=== PATIENT | male | born 1940 | race Two or more races ===

== ENCOUNTER → 2017-06-29 | Outpatient (REF) | payer BC, MEDICARE | LOC: M SMT 13:08 | PROVIDERS: ATTEND Nurse Practitioner Women's Health | DX: N40.1 Benign prostatic hyperplasia with lower urinary tract symptoms (principal) ==

== ENCOUNTER 2017-08-14 03:19 | Inpatient (IN) | payer MEDICARE ==
[2017-08-14] MEDS ORDERED: BENA10TA6 PO (03:28)
[2017-08-14] MEDS ORDERED: GLIP1TAB49 PO (03:28)
[2017-08-14] MEDS ORDERED: METF10004 PO (03:28)
[2017-08-14] MEDS ORDERED: FLOM5CAP PO (03:29)
[2017-08-14] MEDS ORDERED: D 50CAP PO (03:29)
[2017-08-14] MEDS ORDERED: ZOCO20TA PO (03:29)
[2017-08-14] MEDS ORDERED: FINA5TAB2 PO (03:29)
[2017-08-14] MEDS ORDERED: ACTO45TA12 PO (03:29)
[2017-08-14 04:05] LABS: MEAN CORPUSCULAR HEMOGLOBIN 32.1 pg (27.0-33.0); MEAN CORPUSCULAR HGB CONC 35.5 g/dl (32.0-36.5); MEAN CORPUSCULAR VOLUME 90.6 fl (80.0-96.0); PLATELET COUNT, AUTOMATED 164 10^3/uL (150-450); RED CELL DISTRIBUTION WIDTH 12.9 % (11.5-14.5); WHITE BLOOD COUNT 5.4 10^3/uL (4.0-10.0)
[2017-08-14 04:36] LABS: METHADONE URINE NEGATIVE (NEGATIVE)
[2017-08-14 04:45] LABS: ALBUMIN/GLOBULIN RATIO 1.33 (1.00-1.93); ALKALINE PHOSPHATASE 68 U/L (45-117); ALT/SGPT 16 U/L (12-78); ANION GAP 10 MEQ/L (8-16); AST/SGOT 7 U/L (7-37); BILIRUBIN,DIRECT 0.2 MG/DL (0.0-0.2); BILIRUBIN,TOTAL 0.8 MG/DL (0.2-1.0); BLOOD UREA NITROGEN 15 MG/DL (7-18); CALCIUM LEVEL 8.4 MG/DL (8.8-10.2); CARBON DIOXIDE LEVEL 27 MEQ/L (21-32); CHLORIDE LEVEL 107 MEQ/L (98-107); CREATININE FOR GFR 0.95 MG/DL (0.70-1.30); GLOMERULAR FILTRATION RATE > 60.0 (>42); GLUCOSE, FASTING 289 MG/DL (83-110); POTASSIUM SERUM 3.7 MEQ/L (3.5-5.1); SODIUM LEVEL 144 MEQ/L (136-145)
[2017-08-14] MEDS ORDERED: GLIP5TAB8 PO (04:59)
[2017-08-14] MEDS ORDERED: glipiZIDE *2.5MG* 1/2 TABLET PO SCH ×3 (07:30→17:30)
[2017-08-14] MEDS ORDERED: metFORMIN (GLUCOPHAGE) 1000 MG TABLET PO SCH (08:00)
[2017-08-14] MEDS ORDERED: metFORMIN (GLUCOPHAGE) 1000 MG TABLET PO ONE (09:00)
[2017-08-14] MEDS: FINASTERIDE 5 MG TAB PO SCH (09:45)
[2017-08-14] MEDS: VITAMIN D 1,000 INTERNATIONAL UNITS TABLET PO SCH (09:46)
[2017-08-14] MEDS: TAMSULOSIN 0.4 MG CAP PO SCH (09:46)
[2017-08-14] MEDS: BENAZEPRIL 20 MG TAB PO SCH (09:50)
[2017-08-14] MEDS ORDERED: glipiZIDE (GLUCOTROL) 5 MG TAB PO ONE (10:15)
--- NOTE | 2017-08-14 10:16 | HPEPDOC ---
General Date of Admission Chief Complaint The patient is a 77-year-old male admitted with a reason for visit of E. Source: Patient, Family Exam Limitations: Dementia Timing/Duration: Getting worse Severity: Severe Associated Symptoms: Denies Symptoms History of Present Illness 77 yo male brought in by police who were called for assistance by his for threatening behavior. History goes back for the last month with progressive decline in mentation, problems with activities of daily living, not taking medications properly. She states this behavior actually goes back for the last 4 -5 years, diagnosed with Alzheimer's dementia as per . However, over the last year there has been a greater decline, and acutely over the last month. She states he has delusions of people trying to harm him, aggressive behavior - slamming doors, punching mc. She is usually able to calm him down, however last night she was unable to do so, and his behavior escalated to threats of harming her. She stated at one point she needed to display a hammer to protect herself, which prompted her to call the police. Currently he denies any medical complaints. Home Medications Scheduled Benazepril HCl (Benazepril HCl) 10 Mg Tab, 10 MG PO DAILY, (Reported) Cholecalciferol (Vitamin D3) 5,000 Unit Cap, 5,000 UNIT PO DAILY, (Reported) Finasteride (Finasteride) 5 Mg Tab, 5 MG PO DAILY, (Reported) Glipizide (Glipizide) 5 Mg Tab, 5 MG PO BID, (Reported) Metformin Hydrochloride (Metformin HCl) 1,000 Mg Tab, 1,000 MG PO BID, (Reported ) Pioglitazone Hydrochloride (Actos) 45 Mg Tab, 45 MG PO DAILY, (Reported) Simvastatin (Zocor) 20 Mg Tab, 20 MG PO QHS, (Reported) Tamsulosin Hydrochloride (Flomax) 0.4 Mg Cap, 0.4 MG PO QHS, (Reported) Allergies Coded Allergies: Penicillins (Verified Allergy, Intermediate, HIVES, 11/27/12) Penicillins Cross Reactors (Verified Allergy, Intermediate, HIVES, 11/27/12) Warfarin (Verified Allergy, Intermediate, RASH - PT UNSURE, 11/27/12) Aspirin (Verified Adverse Reaction, Intermediate, DIARRHEA, 11/27/12) Past Medical History Medical History HTN DM Dyslipidemia Dementia Social History * Smoker: current smoker Alcohol: Denies Review of Systems Constitutional: Denies: Chills, Fever, Malaise, Night Sweats, Weakness, Fatigue , Weight Loss, Lethargy, Other Eyes: Denies: Pain, Vision change, Conjunctivae inflammation, Eyelid inflammation, Redness, Other ENT: Denies: Head Aches, Ear Pain, Dysphagia, Sinus Congestion, Post Nasal Drip , Sore Throat, Epistaxis, Other Symptoms Skin: Denies: Rash, Lesions, Jaundice, Bruising, Itching, Dry, Breakdown, Nail Changes, Other Pulmonary: Denies: Dyspnea, Cough, Pleuritic Chest Pain, Other Symptoms Cardiovascular: Denies: Chest Pain, Palpitations, Orthopnea, Paroxysmal Noc. Dyspnea, Edema, Lt Headedness, Other Symptoms Gastrointestinal: Denies: Nausea, Vomiting, Abdominal Pain, Diarrhea, Constipation, Melena, Hematochezia, Other Symptoms Genitourinary: Denies: Dysuria, Frequency, Incontinence, Hematuria, Retention, Other Symptoms Hematologic: Denies: Bruising, Bleeding Excessively, Petecchia, Purpura, Enlarged Lymph Nodes, Other Hematologic Endocrine: Denies: Polydipsia, Polyphagia, Polyuria, Heat Intolerance, Cold Intolerance, Other Endocrine Sx Musculoskeletal: Denies: Neck Pain, Back Pain, Shoulder Pain, Arm Pain, Hand Pain, Leg Pain, Foot Pain, Joint Pain, Muscle Pain, Spasms, Other Symptoms Neurological: Denies: Weakness, Numbness, Incoordination, Change in speech, Confusion, Seizures, Other Symptoms Physical Examination General Exam: Positive: Alert, Cooperative, No Acute Distress Eye Exam: Positive: PERRLA, Conjunctiva & lids normal, EOMI, Negative: Sclera icteric ENT Exam: Positive: Atraumatic, Mucous membr. moist/pink Neck Exam: Positive: Supple, Negative: JVD Chest Exam: Positive: Clear to auscultation, Normal air movement Heart Exam: Positive: Rate Normal, Regular Rhythm Abdomen Exam: Positive: Normal bowel sounds, Soft, Negative: Tenderness Extremity Exam: Negative: Edema Psych Exam: Negative: Oriented x 3 (Only oriented to person. With prompting he identified being in the hospital, with prompting identified the correct president.) Vital Signs Vital Signs Date Time Temp Pulse Resp B/P (MAP) Pulse Ox O2 Delivery O2 Flow Rate FiO2 08/14/17 09:50 146/73 08/14/17 09:01 97.9 69 16 98 Room Air Laboratory Data Labs 24H Laboratory Tests 2 08/14/17 03:59: Urine Amphetamines Screen NEGATIVE, Urine Benzodiazepines Screen NEGATIVE, Urine Opiates Screen NEGATIVE, Urine Methadone Screen NEGATIVE, Urine Barbiturates Screen NEGATIVE, Urine Phencyclidine Screen NEGATIVE, Urine Cocaine Metabolite Screen NEGATIVE, Urine Cannabinoids Screen NEGATIVE 08/14/17 04:00: Nucleated Red Blood Cells % (auto) 0.0, Anion Gap 10, Glomerular Filtration Rate > 60.0, Calcium Level 8.4L, Aspartate Amino Transf (AST/SGOT) 7, Alanine Aminotransferase (ALT/SGPT) 16, Alkaline Phosphatase 68, Total Bilirubin 0.8, Direct Bilirubin 0.2, Total Protein 7.0, Albumin 4.0, Albumin/Globulin Ratio 1.33, Thyroid Stimulating Hormone (TSH) 1.780, Salicylates Level < 1.7L, Acetaminophen Level < 2.0L, Ethyl Alcohol Level < 0.003 CBC/BMP Laboratory Tests 08/14/17 04:00 Red Blood Count 5.01, Mean Corpuscular Volume 90.6, Mean Corpuscular Hemoglobin 32.1, Mean Corpuscular Hemoglobin Concent 35.5, Red Cell Distribution Width 12.9 Problems (1) Dementia Status: Chronic Discussed With: Patient, Health Care Proxy Problem Text: Delirium workup. Likely underlying dementia progressively worsening. is requesting placement. (2) Diabetes Status: Chronic Discussed With: Patient, Health Care Proxy (3) Dyslipidemia Status: Chronic Discussed With: Patient, Health Care Proxy (4) HTN (hypertension) Status: Chronic Discussed With: Patient, Health Care Proxy Problem Specific Plan: Monitor Clinically (5) BPH (benign prostatic hyperplasia) Status: Chronic Discussed With: Patient, Health Care Proxy Problem Specific Plan: Monitor Clinically Problem Text: flomax patient's stated he was directed to use a calderon catheter, but was not able to tolerate check i/o's Plan / VTE VTE Prophylaxis Ordered?: Yes Plan Diet: Continue Current Activity: Continue Current Pt and Family Services: Other PFS Diagnostics: Repeat Labs in AM, Obtain Cultures, CT Anticipated Discharge: Half-Way RODRIGUEZ WOOD MD Aug 14, 2017 10:15
[2017-08-14] MEDS ORDERED: DEXTROSE 50% 50 ML SYRINGE IV PRN (11:00)
[2017-08-14] MEDS ORDERED: GLUCOSE 4 GM CHEW TABLET PO PRN (11:00)
[2017-08-14] MEDS ORDERED: GLUCAGON FOR INJ 1 MG VIAL (J1610) SC PRN (11:00)
--- NOTE | 2017-08-14 11:15 | REP ---
CT of the brain without IV contrast: There are no comparisons. There is no hemorrhage. There is no edema, mass effect or midline shift. The ventricles and sulci are dilated compatible with diffuse volume loss. The visualized paranasal sinuses and mastoid air cells are clear. Impression: There is no hemorrhage, acute infarct or mass. There is diffuse volume loss. Signed by Romain Wild MD 08/14/2017 11:07 A
[2017-08-14] MEDS: HumaLOG INSULIN (NovoLOG) PER UNIT SC SCH ×3 (12:00→21:20)
[2017-08-14 15:00] VITALS: BP 131/74
[2017-08-14 15:13] VITALS: BP 131/74
[2017-08-14] MEDS: HEPARIN SOD (PORCINE) 5000 UNITS/ML VIAL SC SCH ×2 (16:33→21:20)
--- NOTE | 2017-08-14 19:17 | MHCR ---
DATE OF CONSULTATION: 08/14/2017 HISTORY OF PRESENT ILLNESS: This is a 77-year-old white male brought into the emergency room by the [facility] Police. The patient has been making homicidal threats toward his and threats to harm himself as well. The patient has a history of dementia. Staff noticed upon admission that he appeared confused with no recollection of the events that had transpired prior to admission. According to his , he has not been taking medications for months. The patient is on metformin, benazepril, Actos, Zocor, Flomax, finasteride, and glipizide. He has a history of diabetes. The patient has a history of acting aggressive towards his . The patient has no prior psychiatric history according to the . She is no longer able to take care of him due to his agitation and refusal to take medications under her supervision. MENTAL STATUS EXAMINATION: The patient is alert, but is not oriented. He is aware of his date of , but then claims he is age 56. He gives today's date as July,. He reports that this is [facility]. He is unaware of his address. He admits to recent memory difficulties. He gives the state [place] as [facility]. The distance from [place] to [place] is 200 miles. He is not able to give the name of the president. Recollection of three items at 5 minutes is 0/3. He is not able to interpret any proverbs. The patient is not depressed. He is not voicing any current homicidal or suicidal thoughts. He denies hearing auditory hallucinations. He denies visual hallucinations. No paranoid ideation elicited. No delusional beliefs noted. Primary functions markedly impaired. He is not oriented, as mentioned above. Grooming and hygiene are poor. Insight and judgment markedly impaired. Patient not able to care for himself nor is his able to assist him apparently. IMPRESSION: Possible Alzheimer's disease with behavioral disturbance. PLAN: Social admission with long-term placement appears appropriate. The patient is not a candidate for a psychiatric inpatient facility. If the patient does develop any sundowning behavioral disturbances, trials of either Seroquel 25 mg nightly or Zyprexa 2.5 mg nightly would be appropriate with upward titration as indicated.
[2017-08-14 20:30] VITALS: BP 115/60
[2017-08-14] MEDS: SIMVASTATIN 20 MG TAB PO SCH (21:19)
[2017-08-15 05:55] LABS: BASO % 0.4 % (0.0-1.0); EOS # 0.1 10^3/uL (0.0-0.50); EOS % 2.1 % (0.0-3.0); IMMATURE GRANULOCYTE % 0.2 % (0-0); LYMPH # 1.5 10^3/uL (1.5-4.5); LYMPH % 29.3 % (24.0-44.0); MEAN CORPUSCULAR HEMOGLOBIN 31.9 pg (27.0-33.0); MEAN CORPUSCULAR HGB CONC 35.3 g/dl (32.0-36.5); MEAN CORPUSCULAR VOLUME 90.4 fl (80.0-96.0); MONO # 0.4 10^3/uL (0.0-0.8); MONO % 8.3 % (0.0-5.0); NEUTROPHILS # 3.1 10^3/uL (1.8-7.7); NEUTROPHILS % 59.7 % (36.0-66.0); PLATELET COUNT, AUTOMATED 148 10^3/uL (150-450); RED CELL DISTRIBUTION WIDTH 13.2 % (11.5-14.5); WHITE BLOOD COUNT 5.2 10^3/uL (4.0-10.0)
[2017-08-15 06:00] VITALS: BP 140/62
[2017-08-15] MEDS: HEPARIN SOD (PORCINE) 5000 UNITS/ML VIAL SC SCH ×3 (06:03→22:00)
[2017-08-15 06:14] LABS: ANION GAP 8 MEQ/L (8-16); BLOOD UREA NITROGEN 22 MG/DL (7-18); CALCIUM LEVEL 7.9 MG/DL (8.8-10.2); CARBON DIOXIDE LEVEL 26 MEQ/L (21-32); CHLORIDE LEVEL 111 MEQ/L (98-107); CHOLESTEROL LEVEL 109 MG/DL (<200); CREATININE FOR GFR 0.69 MG/DL (0.70-1.30); GLOMERULAR FILTRATION RATE > 60.0 (>42); GLUCOSE, FASTING 211 MG/DL (83-110); SODIUM LEVEL 145 MEQ/L (136-145); TRIGLYCERIDES LEVEL 39 MG/DL (<150)
[2017-08-15] MEDS: SIMVASTATIN 20 MG TAB PO SCH (08:08)
[2017-08-15] MEDS: VITAMIN D 1,000 INTERNATIONAL UNITS TABLET PO SCH (08:08)
[2017-08-15] MEDS: FINASTERIDE 5 MG TAB PO SCH (08:08)
[2017-08-15] MEDS: BENAZEPRIL 20 MG TAB PO SCH (08:08)
[2017-08-15] MEDS: TAMSULOSIN 0.4 MG CAP PO SCH (08:08)
[2017-08-15] MEDS: HumaLOG INSULIN (NovoLOG) PER UNIT SC SCH ×4 (08:09→20:19)
--- NOTE | 2017-08-15 09:53 | IPNPDOC ---
Subjective Date Seen The patient was seen on 08/15/17. Subjective Chief Complaint/HPI The patient is a 77-year-old male admitted with a reason for visit of Altered Mental Status. Events since last encounter Seen and examined at bedside. States he is very hungry. No medical complaints. Poor historian. General: Denies: ROS Unobtainable, Chills, Night Sweats, Fatigue, Malaise, Normal Appetite, Other Symptoms Constitutional: Denies: Chills, Fever, Malaise, Night Sweats, Weakness, Fatigue , Weight Loss, Lethargy, Other Eyes: Denies: Pain, Vision change, Conjunctivae inflammation, Eyelid inflammation, Redness, Other ENT: Denies: Head Aches, Ear Pain, Dysphagia, Sinus Congestion, Post Nasal Drip , Sore Throat, Epistaxis, Other Symptoms Skin: Denies: Rash, Lesions, Jaundice, Bruising, Itching, Dry, Breakdown, Nail Changes, Other Pulmonary: Denies: Dyspnea, Cough, Pleuritic Chest Pain, Other Symptoms Cardiovascular: Denies: Chest Pain, Palpitations, Orthopnea, Paroxysmal Noc. Dyspnea, Edema, Lt Headedness, Other Symptoms Gastrointestinal: Denies: Nausea, Vomiting, Abdominal Pain, Diarrhea, Constipation, Melena, Hematochezia, Other Symptoms Genitourinary: Denies: Dysuria, Frequency, Incontinence, Hematuria, Retention, Other Symptoms Objective Physical Examination General Exam: Positive: Alert, Cooperative, No Acute Distress Eye Exam: Positive: PERRLA, Conjunctiva & lids normal, EOMI, Negative: Sclera icteric ENT Exam: Positive: Atraumatic, Mucous membr. moist/pink Neck Exam: Positive: Supple, Negative: JVD Chest Exam: Positive: Clear to auscultation, Normal air movement Heart Exam: Positive: Rate Normal, Regular Rhythm Abdomen Exam: Positive: Normal bowel sounds, Soft, Negative: Tenderness Extremity Exam: Negative: Edema Psych Exam: Negative: Oriented x 3 (Only oriented to person and date of .) Assessment /Plan Problems (1) Dementia Status: Chronic Discussed With: Patient, Health Care Proxy Problem Text: Delirium workup unrevealing. Still pending UA. Likely progressively worsening dementia. is requesting placement. (2) Diabetes Status: Chronic Discussed With: Patient, Health Care Proxy (3) Dyslipidemia Status: Chronic Discussed With: Patient, Health Care Proxy (4) HTN (hypertension) Status: Chronic Discussed With: Patient, Health Care Proxy Problem Specific Plan: Monitor Clinically (5) BPH (benign prostatic hyperplasia) Status: Chronic Discussed With: Patient, Health Care Proxy Problem Specific Plan: Monitor Clinically Problem Text: yg patient's stated he was directed to use a calderon catheter, but was not able to tolerate check i/o's Plan/VTE VTE Prophylaxis Ordered?: Yes Plan Diet: Continue Current Activity: Continue Current Pt and Family Services: Other PFS Diagnostics: Obtain Cultures Anticipated Discharge: Senior Living VS, I&O, 24H, Fishbone Vital Signs/I&O Vital Signs Date Time Temp Pulse Resp B/P (MAP) Pulse Ox O2 Delivery O2 Flow Rate FiO2 08/15/17 09:39 Room Air 08/15/17 08:08 140/62 08/15/17 06:00 98.6 59 18 97 I&O- Last 24 Hours up to 6 AM 08/16/17 06:00 Output Total 200 ml Balance -200 ml Laboratory Data 24H LABS Laboratory Tests 2 08/14/17 12:40: Bedside Glucose (Misc Panel) 292H 08/14/17 16:59: Bedside Glucose (Misc Panel) 97 08/14/17 21:09: Bedside Glucose (Misc Panel) 292H 08/15/17 05:37: Immature Granulocyte % (Auto) 0.2H, White Blood Count 5.2, Red Blood Count 4.26L , Hemoglobin 13.6#L, Hematocrit 38.5L, Mean Corpuscular Volume 90.4, Mean Corpuscular Hemoglobin 31.9, Mean Corpuscular Hemoglobin Concent 35.3, Red Cell Distribution Width 13.2, Platelet Count 148L, Neutrophils (%) (Auto) 59.7, Lymphocytes (%) (Auto) 29.3, Monocytes (%) (Auto) 8.3H, Eosinophils (%) (Auto) 2.1, Basophils (%) (Auto) 0.4, Neutrophils # (Auto) 3.1, Lymphocytes # (Auto) 1.5, Monocytes # (Auto) 0.4, Eosinophils # (Auto) 0.1, Basophils # (Auto) 0.0, Immature Granulocyte # (Auto) 0.0, Nucleated Red Blood Cells % (auto) 0.0, Anion Gap 8, Glomerular Filtration Rate > 60.0, Estimated Mean Plasma Glucose 258H, Hemoglobin A1c 10.6, Calcium Level 7.9L, Triglycerides Level 39, LDL Cholesterol 39.2, Total Cholesterol 109, Non-HDL Cholesterol (LDL + VLDL) 47, Total HDL Cholesterol 62, Cholesterol/HDL Ratio 1.758 CBC/BMP Laboratory Tests 08/15/17 05:37 Red Blood Count 4.26 L, Mean Corpuscular Volume 90.4, Mean Corpuscular Hemoglobin 31.9, Mean Corpuscular Hemoglobin Concent 35.3, Red Cell Distribution Width 13.2, Neutrophils (%) (Auto) 59.7, Lymphocytes (%) (Auto) 29.3, Monocytes (%) (Auto) 8.3 H, Eosinophils (%) (Auto) 2.1, Basophils (%) ( Auto) 0.4, Neutrophils # (Auto) 3.1, Lymphocytes # (Auto) 1.5, Monocytes # (Auto ) 0.4, Eosinophils # (Auto) 0.1, Basophils # (Auto) 0.0 Microbiology Microbiology 08/14/17 Blood Culture, Received Pending 08/14/17 Blood Culture, Received Pending RODRIGUEZ WOOD MD Aug 15, 2017 09:53
[2017-08-15 10:31] LABS: VITAMIN B12 LEVEL 433 PG/ML (247-911)
[2017-08-15 10:40] LABS: FOLATE 21.5 NG/ML (>5.4)
[2017-08-15 14:00] VITALS: BP 98/46
[2017-08-15 22:00] VITALS: BP 128/60
[2017-08-16 06:00] VITALS: BP 145/67
[2017-08-16] MEDS: HEPARIN SOD (PORCINE) 5000 UNITS/ML VIAL SC SCH ×3 (06:11→21:26)
[2017-08-16 09:09] LABS: MUCUS, URINE RFX SMALL (NEGATIVE); SPECIFIC GRAVITY UR AUTO RFX 1.018 (1.002-1.035); SQUAM EPITHELIAL CELL UR AURFX 0 /HPF (0-6)
[2017-08-16] MEDS: FINASTERIDE 5 MG TAB PO SCH (09:37)
[2017-08-16] MEDS: HumaLOG INSULIN (NovoLOG) PER UNIT SC SCH ×4 (09:37→21:26)
[2017-08-16] MEDS: TAMSULOSIN 0.4 MG CAP PO SCH (09:37)
[2017-08-16] MEDS: VITAMIN D 1,000 INTERNATIONAL UNITS TABLET PO SCH (09:38)
[2017-08-16] MEDS: SIMVASTATIN 20 MG TAB PO SCH (09:38)
[2017-08-16] MEDS: BENAZEPRIL 20 MG TAB PO SCH (09:41)
[2017-08-16 14:00] VITALS: BP 124/69
[2017-08-16 22:00] VITALS: BP 120/59
[2017-08-17] MEDS: HEPARIN SOD (PORCINE) 5000 UNITS/ML VIAL SC SCH ×2 (05:22→12:59)
[2017-08-17 06:00] VITALS: BP 118/58
--- NOTE | 2017-08-17 08:05 | IPN ---
DATE: 08/16/2017 SUBJECTIVE: Patient is seen and examined in the room today. Patient continues to shows some signs of disorientation and signs of dementia. Denies any acute complaints. OBJECTIVE: VITAL SIGNS: Temperature 98.3, pulse 56, respiration 18, blood pressure 145/67, pulse oximetry 96% on room air. GENERAL: Alert and awake, not fully oriented. HEENT: Normocephalic atraumatic. Extraocular muscles grossly intact. CARDIOVASCULAR: Positive S1, S2 regular rate. LUNGS: Clear to auscultation bilaterally. ABDOMEN: Soft, nontender, nondistended. Bowel sounds present. EXTREMITIES: No edema. No cyanosis. LABORATORY DATA: 08/15/2017 show a WBC 5.2, hemoglobin 13.6, hematocrit 38.5, platelet count 148. Sodium 145, potassium 4, chloride 111, carbon dioxide 26, BUN 22, creatinine 0.869, GFR greater than 60, fasting glucose 211, A1c 10.6, calcium 7.9, triglycerides 39, total cholesterol 109, LDL 39.2. Blood cultures negative after 48-hours times two sets. Sample collected on 08/14/2017. ASSESSMENT AND PLAN: 1. Dementia with behavior disturbance. On the date of admission the patient was brought to the hospital by police. Patient had a history of multiple hospitalizations for similar episodes. Patient may benefit from placement. community support worker has been assisting on the case. Patient will change to ALC status today. 2. Diabetes. Patient is on a sliding scale. 3. Dyslipidemia on simvastatin. 4. Benign prostate hypertrophy. Flomax and Proscar. 5. Hypertension. lotensin. 6. Deep venous thrombosis (DVT) prophylaxis. Heparin. MTDD
[2017-08-17] MEDS: HumaLOG INSULIN (NovoLOG) PER UNIT SC SCH ×2 (08:59→12:59)
[2017-08-17] MEDS: SIMVASTATIN 20 MG TAB PO SCH (08:59)
[2017-08-17] MEDS: TAMSULOSIN 0.4 MG CAP PO SCH (08:59)
[2017-08-17] MEDS: VITAMIN D 1,000 INTERNATIONAL UNITS TABLET PO SCH (08:59)
[2017-08-17] MEDS: FINASTERIDE 5 MG TAB PO SCH (08:59)
[2017-08-17 09:00] VITALS: BP 140/67
[2017-08-17] MEDS: BENAZEPRIL 20 MG TAB PO SCH (09:00)
[2017-08-17 14:00] VITALS: BP 129/61
--- NOTE | 2017-08-17 15:12 | DSES ---
DATE OF ADMISSION: 08/15/2017 DATE OF DISCHARGE: DISCHARGE DIAGNOSES: 1. Dementia with behavioral disturbance. 2. Diabetes. 3. Dyslipidemia. 4. Benign prostatic hypertrophy (BPH). 5. Hypertension. 6. Uncontrolled diabetes. HOSPITALIZATION COURSE: The patient is a 77-year-old male who was brought to [facility] by police after he had threatening behavior at home. Prior to admission, the patient had delusions and aggressive behavior. Due to the recurrence of the behavior abnormalities associated with worsening dementia, social worker clinical have been assisting in looking for placement for the patient. During the hospitalization, protective services was also involved in the case. On 08/17/2017, the patient's decided to bring the patient home and the patient is discharged from [facility] with instructions to followup with the primary care provider in 1 week. OBJECTIVE: VITAL SIGNS: Temperature is 98.5, pulse 66, respirations 19, blood pressure 118/58, pulse oximetry 97% on room air. LABORATORY DATA: On 08/15/2017, WBC 5.2, hemoglobin 13.6, hematocrit 38.5, platelet count is 148. Sodium is 145, potassium 4, chloride 111, carbon dioxide 26, BUN 22, creatinine 0.69, GFR greater than 60, fasting glucose 211. A1/c is 10.6. Calcium is 7.9. Triglycerides 39, total cholesterol is 109, LDL is 39.2, HDL is 62. Blood cultures are negative after 72 hours, sent on 08/14/2017. Urinalysis from 08/16/2017 is negative. Syphilis serology is negative. IMAGING STUDIES: CT of the head with contrast showed no hemorrhages, acute infarct or mass. There is a diffuse volume loss. DISCHARGE MEDICATIONS: - benazepril 10 mg by mouth daily - vitamin D3 5000 units by mouth daily - finasteride 5 mg by mouth daily - glipizide 5 mg by mouth twice a day - metformin 1000 mg by mouth twice a day - Actos 45 mg by mouth daily - simvastatin 20 mg by mouth at night - Flomax 0.4 mg by mouth at night DISCHARGE INSTRUCTIONS: Discontinue line. Discharge to home with home services. Activity as tolerated. Low salt diet and consistent carbohydrate diet as tolerated. The patient should followup with primary care provider in 1 week. Discharge condition is fair. Discharge time was greater than 30 minutes.
== END 2017-08-17 16:06 | disposition home health service (06) | DRG 57 ==
LOC: M ED 03:19 → M ED INP 10:56 → M MS4PR 15:00 → M MSPAV 20:17 → OBSVTOIN 08-15 09:53
PROVIDERS: ADMIT Internal Medicine; ATTEND Internal Medicine
DX: G30.9 Alzheimer's disease, unspecified (principal); F02.81 Dementia in other diseases classified elsewhere, unspecified severity, with behavioral disturbance; I10 Essential (primary) hypertension; F17.210 Nicotine dependence, cigarettes, uncomplicated; E78.5 Hyperlipidemia, unspecified; E11.9 Type 2 diabetes mellitus without complications; Z79.84 Long term (current) use of oral hypoglycemic drugs; Z79.899 Other long term (current) drug therapy; Z88.0 Allergy status to penicillin; Z88.6 Allergy status to analgesic agent; Z88.8 Allergy status to other drugs, medicaments and biological substances